=== PATIENT | female | born 1955 | race Caucasian/White ===

== ENCOUNTER 2018-08-30 18:50 | Emergency (ER) | payer OTHER ==
[~2018-08-30] VITALS: Ht 170.2 cm; Wt 124.7 kg
[~2018-08-30 18:50] MED LIST: AMOX TR-K CLV1 EAC4 PO; BACTRIM DS TAB1 EACH PO; CIPROFLOXACIN500 M1 PO; CLIMARA TD; CYCLOBENZAPRINE10 MG PO; ESTRACE0.5 MG PO; FLAGYL500 MG PO; NAPROSYN500 MG PO; NORCO 5-325 TA1 EACH PO; PERCOCET 5-3251 EACH PO; SIMVASTATIN40 MG PO; TIROSINT75 MCG PO; VICODIN 5-5001 EACH PO; VYTORIN 10-201 EACH PO; ZOFRAN4 MG PO
[2018-08-30 19:09] VITALS: BP 164/83
== END 2018-08-30 19:51 | disposition home or self-care (01) ==
LOC: ER 18:50
DX: S81.811A Laceration without foreign body, right lower leg, initial encounter (principal); I10 Essential (primary) hypertension; Z88.6 Allergy status to analgesic agent; W22.8XXA Striking against or struck by other objects, initial encounter; Y93.89 Activity, other specified; Y92.89 Other specified places as the place of occurrence of the external cause; Y99.8 Other external cause status